=== PATIENT | male | born 1965 | race Caucasian/White ===

== ENCOUNTER 2021-06-02 05:18 | Day surgery (SDC) | payer MEDICARE, MEDICAID ==
[2021-05-31 12:13] LABS: BASOPHILS % (AUTO) 0.2 % (0-1); EOSINOPHILS # (AUTO) 0.1 X10'3 (0-0.9); PRE OP HEMATOCRIT 39.9 % (42.0-52.0)
[2021-05-31 12:14] LABS: EOSINOPHILS % (AUTO) 2.6 % (0-6); LYMPHOCYTES # (AUTO) 0.4 X10'3 (1.1-4.8); LYMPHOCYTES % (AUTO) 6.9 % (21-51); MEAN CORPUSCULAR HEMOGLOBIN 30.9 PG (27.0-31.0); MEAN CORPUSCULAR HGB CONC 33.4 g/dL (33.0-36.5); MEAN CORPUSCULAR VOLUME 92.5 FL (78-98); MEAN PLATELET VOLUME 7.3 FL (7.4-10.4); MONOCYTES # (AUTO) 0.5 X10'3 (0-0.9); MONOCYTES % (AUTO) 10.3 % (2-12); NEUTROPHILS # (AUTO) 4.3 X10'3 (1.8-7.7); PRE OP HEMOGLOBIN 13.3 g/dL (14.0-17.9); PRE OP PLATELET COUNT 341 X10'3 (140-440); RED BLOOD COUNT 4.31 X10'6 (4.70-6.10); RED CELL DISTRIBUTION WIDTH 13.6 % (11.5-14.5)
[2021-05-31 12:17] LABS: ALBUMIN 3.7 G/DL (3.4-5.0); ALBUMIN/GLOBULIN RATIO 1.2 (1.1-1.5); ALKALINE PHOSPHATASE 132 IU/L (46-116); BLOOD UREA NITROGEN 18 MG/DL (7-18); BUN/CREATININE RATIO 22.5 (5.4-32.0); CALCIUM 8.9 MG/DL (8.5-10.1); CHLORIDE 107 MMOL/L (99-107); PRE OP ANION GAP 5 (8-16); PRE OP AST 33 U/L (10-37); PRE OP BILIRUB, TOTAL 0.4 MG/DL (0.0-1.0); PRE OP GLUCOSE 100 MG/DL (70-104); PRE OP POTASSIUM 4.5 MMOL/L (3.4-5.1); PRE OP SODIUM 144 MMOL/L (135-145); TOTAL CARBON DIOXIDE 31.6 MMOL/L (24-32); TOTAL PROTEIN 6.9 G/DL (6.4-8.2); eGFR > 90 ML/MIN
[2021-05-31 12:22] LABS: CLARITY,URINE CLEAR (Clear); COLOR,URINE YELLOW (Yellow); GLUCOSE, URINE NEGATIVE (Neg); PH,URINE 7.5 (4.8-8.0); PROTEIN,URINE NEGATIVE (Neg); UA COLLECTION TYPE CLN CATCH MIDSTREAM
[2021-05-31 12:23] LABS: PRE OP ALT 100 U/L (30-65)
[2021-05-31 12:23] LABS: KETONES,URINE NEGATIVE (Neg); LEUKOCYTE ESTERASE ,URINE NEGATIVE (Neg); NITRITES, URINE NEGATIVE (Neg); OCCULT BLOOD,URINE NEGATIVE (Neg); UROBILINOGEN,URINE 0.2 E.U/dL (0.2-1.0)
[~2021-06-02] VITALS: Ht 182.9 cm; Wt 73.2 kg
[2021-06-02] VITALS (8 sets, daily range): BP systolic 101–129; BP diastolic 59–84
[~2021-06-02 05:18] MED LIST: ATOR40TA PO; BACL10TA PO; CEPH-585 PO; CHOL10008 PO; DOCU-345 PO; FING0.5C3 PO; GABA-532 PO; HYDR-3973 PO; IBUP-1986 PO; OXYB15TA19 PO; ringers solution, lacted 1,000 ML IV SCH
[2021-06-02] MEDS ORDERED: ceFAZolin 2gm in dextrose, iso 50 ML IV ONE (05:30)
[2021-06-02] MEDS ORDERED: famotidine 20mg tablet PO ONE (05:30)
[2021-06-02] MEDS ORDERED: bacitracin 15gm ointment TP ONE (06:35)
[2021-06-02] MEDS ORDERED: midazolam 1 mg/ML 2ml injection ONE (07:11)
[2021-06-02] MEDS ORDERED: fentaNYL /PF 50mcg/ml 5ml ampule ONE (07:13)
[2021-06-02] MEDS ORDERED: BUPIVAcaine/PF 2.5 mg/ml (0.25%) 30ml vial ONE (07:27)
[2021-06-02] MEDS ORDERED: proCHLORperazine 10 MG/2 ml inj IV PRN (07:45)
[2021-06-02] MEDS ORDERED: morphine 2 MG/ML inj. syringe IV PRN (07:45)
[2021-06-02] MEDS ORDERED: meperidine/PF 25mg/ml syringe IV PRN ×3 (07:45)
[2021-06-02] MEDS ORDERED: morphine 4 MG/ML inj SYRINge IV PRN (07:45)
[2021-06-02] MEDS ORDERED: ringers solution, lacted 1,000 ML IV SCH (07:45)
[2021-06-02] MEDS ORDERED: ondansetron/PF 4mg/2ml inj IV PRN (07:45)
[2021-06-02] MEDS ORDERED: propofol inj 20 ML IV ONE (07:48)
[2021-06-02] MEDS ORDERED: sugammadex 200mg/2ml injection IV ONE (07:48)
[2021-06-02] MEDS ORDERED: LIDOcaine 2% (20mg/ml) 5ml vial ONE (07:48)
[2021-06-02] MEDS ORDERED: rocuronium 10mg/ml inj IV ONE (07:48)
[2021-06-02] MEDS ORDERED: ondansetron/PF 4mg/2ml inj ONE (07:50)
[2021-06-02] MEDS ORDERED: acetaminophen 1,000mg/100ml IV 100 ML IV ONE (07:50)
[2021-06-02] MEDS ORDERED: dexamethasone sod phosphate 4mg/ml inj. ONE (07:50)
--- NOTE | 2021-06-02 08:21 | NUR ---
walking boot applied to lle
--- NOTE | 2021-06-02 09:00 | NUR ---
patient d/c with all belongings and was given d/c instructions and verbalized understanding. piv d/c and gave transport. v/s stable. dressing to lle cdi. denies pain.
== END 2021-06-02 09:00 | disposition home or self-care (01) ==
LOC: PAS 05:18
PROVIDERS: ATTEND Podiatrist Foot & Ankle Surgery
DX: M20.42 Other hammer toe(s) (acquired), left foot (principal); M24.575 Contracture, left foot; G35 Multiple sclerosis; F32.9 Major depressive disorder, single episode, unspecified; F41.9 Anxiety disorder, unspecified; G47.33 Obstructive sleep apnea (adult) (pediatric); Z79.899 Other long term (current) drug therapy; Z20.822 Contact with and (suspected) exposure to COVID-19; Z72.89 Other problems related to lifestyle; Z87.891 Personal history of nicotine dependence; Z87.442 Personal history of urinary calculi
CPT/HCPCS: 28270; 28285; 36415; 73660; 76000; 80053; 81003; 82948; 85025; 93005; A6223; C1713; C9399; J0131; J1100; J2001; J2250; J2405; J2704; J3010; J3490; J7120; U0003; U0005; Z7506; Z7512; A4618; A6253; A6449; A7000